=== PATIENT | female | born 1985 | race Two or more races ===

== ENCOUNTER 2021-06-06 09:12 | Outpatient (CLI) | payer OTHER | END 2021-06-06 10:50 | disposition home or self-care (01) | LOC: PRENATAL 09:12 | PROVIDERS: ATTEND Obstetrics & Gynecology Maternal & Fetal Medicine | DX: O36.80X0 Pregnancy with inconclusive fetal viability, not applicable or unspecified (principal); Z36 Encounter for antenatal screening of mother; O99.891 Other specified diseases and conditions complicating pregnancy ==

== ENCOUNTER 2021-07-14 10:37 | Outpatient (CLI) | payer OTHER | END 2021-07-14 12:45 | disposition home or self-care (01) | LOC: PRENATAL 10:37 | PROVIDERS: ATTEND Obstetrics & Gynecology Maternal & Fetal Medicine | DX: O35.0XX0 Maternal care for (suspected) central nervous system malformation in fetus, not applicable or unspecified (principal); O35.3XX0 Maternal care for (suspected) damage to fetus from viral disease in mother, not applicable or unspecified; O99.280 Endocrine, nutritional and metabolic diseases complicating pregnancy, unspecified trimester; Z14.8 Genetic carrier of other disease; Z3A.20 20 weeks gestation of pregnancy ==

== ENCOUNTER 2021-10-06 10:19 | Outpatient (CLI) | payer OTHER | END 2021-10-06 11:30 | disposition home or self-care (01) | LOC: PRENATAL 10:19 | PROVIDERS: ATTEND Obstetrics & Gynecology Maternal & Fetal Medicine | DX: O26.849 Uterine size-date discrepancy, unspecified trimester (principal); O99.280 Endocrine, nutritional and metabolic diseases complicating pregnancy, unspecified trimester; Z14.8 Genetic carrier of other disease; O36.8199 Decreased fetal movements, unspecified trimester, other fetus; Z3A.32 32 weeks gestation of pregnancy ==

== ENCOUNTER 2021-11-10 14:41 | Outpatient (CLI) | payer OTHER | END 2021-11-10 15:59 | disposition home or self-care (01) | LOC: PRENATAL 14:41 | PROVIDERS: ATTEND Obstetrics & Gynecology Maternal & Fetal Medicine | DX: O26.849 Uterine size-date discrepancy, unspecified trimester (principal); O99.280 Endocrine, nutritional and metabolic diseases complicating pregnancy, unspecified trimester; O43.90 Unspecified placental disorder, unspecified trimester ==